=== PATIENT | female | born 1985 | race Two or more races ===

== ENCOUNTER 2016-04-29 10:05 | Emergency (ER) | payer OTHER ==
[~2016-04-29] VITALS: Ht 157.5 cm; Wt 65.8 kg
[2016-04-29 10:45] VITALS: BP 114/70
== END 2016-04-29 12:41 | disposition home or self-care (01) ==
LOC: ER 10:05
DX: S00.83XA Contusion of other part of head, initial encounter (principal); W50.0XXA Accidental hit or strike by another person, initial encounter; Y93.71 Activity, boxing; Y99.9 Unspecified external cause status; Y92.89 Other specified places as the place of occurrence of the external cause
CPT/HCPCS: 70486

== ENCOUNTER 2019-11-04 18:34 | Emergency (ER) | payer MEDICAID, OTHER ==
[~2019-11-04] VITALS: Ht 157.5 cm; Wt 67.1 kg
[2019-11-04 19:59] LABS: Basophils # (auto) 0.1 10 ^3/uL (0-0.2); Basophils % (auto) 0.6 % (0.0-2.0); Eosinophils # (auto) 0.1 10 ^3/uL (0-0.8); Eosinophils % (auto) 1.1 % (0.0-7.0); Hematocrit 40.2 % (36.0-46.0); Hemoglobin 13.4 g/dL (12.2-16.2); Lymphocytes % (auto) 33.6 % (10.0-50.0); Mean Corpuscular Hemoglobin 31.3 pg (28.0-32.0); Mean Corpuscular Hgb Conc. 33.3 g/dL (32.0-36.0); Mean Corpuscular Volume 94.1 fL (80.0-100.0); Monocytes # (auto) 0.6 10 ^3/uL (0-1.3); Monocytes % (auto) 6.5 % (0.0-12.0); Neutrophils # (auto) 5.2 10 ^3/uL (1.6-8.6); Neutrophils % (auto) 58.2 % (37.0-80.0); Nucleated Red Blood Cells % 0.1 %; Platelet Count (auto) 440 10^3/uL (140-450); Red Blood Cells 4.27 10^6/uL (4.0-5.20); Red Cell Distribution Width 12.6 % (11.8-14.3); White Blood Cell 8.9 10^3/uL (4.4-10.8)
[2019-11-04] MEDS ORDERED: SODIUM CHLORIDE 0.9% 1,000 ML IV ONE (20:15)
[2019-11-04] MEDS ORDERED: ONDANSETRON HCL 4 MG/2 ML VIAL IV ONE (20:15)
[2019-11-04 20:18] LABS: Alanine Aminotransferase 36 U/L (13-56); Albumin 3.6 g/dL (3.4-5.0); Anion Gap 5 (5-15); Aspartate Aminotransferase 23 U/L (15-37); BUN/Creatinine Ratio 7.1; Blood Urea Nitrogen 5 mg/dL (7-18); Calcium 8.3 mg/dL (8.5-10.1); Carbon Dioxide 27 mmol/L (21-32); Chloride 105 mmol/L (98-107); GFR African American 123 mL/min; GFR Non-African American 102 mL/min; Glucose 85 mg/dL (74-106); Magnesium 2.6 mg/dL (1.6-2.6); Potassium 3.7 mmol/L (3.5-5.1); Sodium 137 mmol/L (136-145)
[2019-11-04 20:23] LABS: Alkaline Phosphatase 62 U/L (45-117); Bilirubin, Total 0.3 mg/dL (0.2-1.0); Total Protein 7.8 g/dL (6.4-8.2)
[2019-11-04 20:47] LABS: Urine Bacteria NONE SEEN /hpf (None Seen); Urine Blood Negative /uL (Negative); Urine Specific Gravity 1.006 (1.001-1.035); Urine WBC 5 /hpf (0 - 5)
[2019-11-04 20:56] LABS: Alcohol, Urine < 3.0 mg/dL (0-10); Amphetamine Screen, Urine NEGATIVE (NEGATIVE); Barbiturate Scree,Urine NEGATIVE (NEGATIVE); Benzodiazephine Screen, Urine NEGATIVE (NEGATIVE); Cocaine Screen, Urine NEGATIVE (NEGATIVE); Opiate Scree,Urine NEGATIVE (NEGATIVE); Phencyclidine Screen, Urine NEGATIVE (NEGATIVE)
[2019-11-04] MEDS ORDERED: cefTRIAXone SOD 1,000 MG VL IM ONE (21:00)
[2019-11-04] MEDS ORDERED: ACETAMINOPHEN 325 MG TAB PO ONE (21:00)
[2019-11-04 21:04] LABS: Cannabinoid Screen, Urine POSITIVE (NEGATIVE)
[2019-11-04] MEDS ORDERED: cefTRIAXone 1GM/50ML D5W 50 ML IV ONE (21:15)
[2019-11-04 21:39] VITALS: BP 127/57
== END 2019-11-04 21:46 | disposition home or self-care (01) ==
LOC: ER 18:34
DX: G43.909 Migraine, unspecified, not intractable, without status migrainosus (principal); N39.0 Urinary tract infection, site not specified; F12.10 Cannabis abuse, uncomplicated; Z71.51 Drug abuse counseling and surveillance of drug abuser; J45.909 Unspecified asthma, uncomplicated
CPT/HCPCS: 36415; 70450; 80053; 80307; 81001; 83735; 84484; 84702; 85025; 93005; 96361; 96365; 96375; 99285; J0696; J2405; J7030

== ENCOUNTER 2022-07-19 11:54 | Emergency (ER) | payer MEDICAID ==
[~2022-07-19] VITALS: Ht 157.5 cm; Wt 66.0 kg
[2022-07-19 12:28] LABS: Basophils # (auto) 0.1 10 ^3/uL (0-0.2); Basophils % (auto) 0.6 % (0.0-2.0); Eosinophils # (auto) 0.1 10 ^3/uL (0-0.8); Eosinophils % (auto) 0.5 % (0.0-7.0); Hematocrit 36.6 % (36.0-46.0); Hemoglobin 12.3 g/dL (12.2-16.2); Lymphocytes # (auto) 1.7 10 ^3/uL (0.4-5.4); Lymphocytes % (auto) 17.5 % (10.0-50.0); Mean Corpuscular Hemoglobin 30.8 pg (28.0-32.0); Mean Corpuscular Hgb Conc. 33.6 g/dL (32.0-36.0); Mean Corpuscular Volume 91.8 fL (80.0-100.0); Monocytes # (auto) 0.5 10 ^3/uL (0-1.3); Neutrophils # (auto) 7.4 10 ^3/uL (1.6-8.6); Neutrophils % (auto) 76.4 % (37.0-80.0); Nucleated Red Blood Cells % 0.1 %; Red Blood Cells 3.98 10^6/uL (4.0-5.20); Red Cell Distribution Width 13.7 % (11.8-14.3); White Blood Cell 9.8 10^3/uL (4.4-10.8)
[2022-07-19 12:47] LABS: Albumin 3.7 g/dL (3.4-5.0); Potassium 3.8 mmol/L (3.5-5.1)
[2022-07-19 12:48] LABS: Urine Bacteria NONE SEEN /hpf (None Seen); Urine Blood 3+ /uL (Negative); Urine Specific Gravity 1.013 (1.001-1.035); Urine WBC 11 /hpf (0 - 5)
[2022-07-19 12:51] LABS: BUN/Creatinine Ratio 17.8 (10.0-20.0); Bilirubin, Total 0.6 mg/dL (0.2-1.0)
[2022-07-19] MEDS ORDERED: KETOROLAC TROMETH 60MG/2ML VIAL IM ONE (16:00)
[2022-07-19 17:12] VITALS: BP 116/74
== END 2022-07-19 17:16 | disposition home or self-care (01) ==
LOC: ER 11:54
DX: R10.31 Right lower quadrant pain (principal); R10.2 Pelvic and perineal pain; J45.909 Unspecified asthma, uncomplicated
CPT/HCPCS: 36415; 74176; 76856; 80053; 81001; 84702; 85025; 96372; 99285; J1885; J7030

== ENCOUNTER 2024-06-24 10:11 | Inpatient (IN) | payer MEDICAID ==
[~2024-06-24] VITALS: Ht 157.5 cm; Wt 83.9 kg
[2024-06-24 03:02] VITALS: BP 118/64; PULSE 113; RESP 18; TEMP 99.3; O2SAT 96
[2024-06-24 10:30] VITALS: PULSE 133; RESP 19; O2SAT 95
--- NOTE | 2024-06-24 10:36 | ECG ---
[facility] Test Date: 2024-06-24 Test Time: 10:23:22 Pat Name: WENDI HERNANDEZ Department: ER Room: [address] [place] [address] Gender: F Sex Therapist: MELISSA : 1985 Requested By: EMERGENCY EMERGENCY Order Number: [id number] Reading MD: Parish Sandoval Measurements Intervals [place] Rate: 134 P: 71 IA: 154 QRS: 72 QRSD: 83 T: 36 QT: 284 QTc: 424 Interpretive Statements Sinus tachycardia Borderline T wave abnormalities Electronically Signed On 06-24-2024 18:52:06 PDT by Parish Sandoval Please click the below link to view image of tracing.
[2024-06-24] MEDS: SODIUM CHLORIDE 0.9% 1,000 ML IVB ONE (10:48)
[2024-06-24] MEDS: ACETAMINOPHEN 325 MG TAB PO ONE (10:48)
[2024-06-24] MEDS: ONDANSETRON HCL 4 MG/2 ML VIAL IV ONE (10:48)
[2024-06-24] MEDS: MORPHINE SULFATE 4 MG/ML SYR/VIAL IV ONE (10:48)
--- NOTE | 2024-06-24 10:56 | ED.PDOC ---
History of Present Illness HPI Comments 38-year-old female who comes in with chief complaint of body chills and shaking. The patient states that two days ago she developed a fever of 102.7. The patient also states that she did take some acetaminophen and alternated with Advil for the fever. Last night in the fever went up to 103 and she developed a headache so she came to the emergency department's for evaluation. Upon arrival, the patient was complaining of left lower quadrant pain as well as right flank pain. The patient does have a history of untreated UTI approximately three days ago. Chief Complaint: Flank Pain Time Seen by MD: 10:27 Primary Care Provider: JUANIS Reviewed Notes: Nurses Notes, Medications, Allergies (No allergies to medications) Allergies: Coded Allergies: NO KNOWN ALLERGIES (Unverified , 04/29/16) Home Meds Reported Medications Cyclobenzaprine HCl (Cyclobenzaprine Hydrochlo) 10 Mg Tab, 1 TAB PO Q8HPRN PRN 06/24/24 Information Source: Patient Mode of Arrival: Ambulatory Severity: Moderate Timing: Days Duration: Since onset Prehospital treatment: None Associated signs and symptoms Associated chills with body shaking as well as left flank pain and right flank pain Past Medical History PAST MEDICAL HISTORY: Asthma Surgical History (Other): Throat surgery ABSENCE MANAGEMENT CONSULTANT History: No Pertinent ABSENCE MANAGEMENT CONSULTANT History Family History Family History: Family hx of DM, Family hx of HTN, Family hx of Kidney mary anne, Family hx of liver mary anne Social History Smoker: Non-Smoker Alcohol: Occasionally Drugs: Marijuana Lives In: Home Constitutional: reports: chills, fever, others (Body shaking); denies: diaphoresis, fatigue, malaise, sweats, weakness EENTM: denies: blurred vision, double vision, ear bleeding, ear discharge, ear drainage, ear pain, ear ringing, eye pain, eye redness, hearing loss, mouth pain, mouth swelling, nasal discharge, nose bleeding, nose congestion, nose pain, photophobia, tearing, throat pain, throat swelling, voice changes, others Respiratory: denies: cough, hemoptysis, orthopnea, SOB at rest, shortness of breath, SOB with excertion, stridor, wheezing, others Cardiovascular: denies: chest pain, dizzy spells, diaphoresis, Dyspnea on exertion, edema, irregular heart beat, left arm pain, lightheadedness, p alpitations, PND, syncope, others Gastrointestinal: reports: abdominal pain; denies: abdomen distended, blood streaked bowels, constipated, diarrhea, dysphagia, difficulty swallowing, hematemesis, melena, nausea, poor appetite, poor fluid intake, rectal bleeding, rectal pain, vomiting, others Genitourinary: reports: flank pain (Right flank pain); denies: abnormal vagina bleeding, burning, dyspareunia, dysuria, frequency, hematuria, incontinence, pain, , vagina discharge, urgency, others Neurological: reports: headache; denies: dizziness, fainting, left sided numbness, left sided weakness, numbness, paresthesia, pre-existing deficit, right sided numbness, right sided weakness, seizure, speech problems, tingling, tremors, weakness, others Musculoskeletal: denies: back pain, gout, joint pain, joint swelling, muscle pain, muscle stiffness, neck pain, others Integumetry: denies: bruises, change in color, change in hair/nails, dryness, laceration, lesions, lumps, rash, wounds, others Allergic/Immunocompromised: denies: Difficulty Healing, Frequent Infections, Hives, Itching, others Hematologic/Lymphatic: denies: anemia, blood clots, easy bleeding, easy bruising, swollen glands, others Endocrine: denies: excessive hunger, excessive sweating, excessive thirst, excessive urination, flushing, intolerance to cold, intolerance to heat, unexplained weight gain, unexplained weight loss, others Psychiatric: denies: anxiety, bipolar disorder, depression, hopeless, panic disorder, schizophrenia, sleepless, suicidal, others Physical Exam General Appearance: Moderate Distress HEENT: Normal ENT Inspection, Pharynx Normal, TMs Normal Neck: Full Range of Motion, Non-Tender, Normal, Normal Inspection Respiratory: Chest Non-Tender, Lungs Clear, No Accessory Muscle Use, No Respiratory Distress, Normal Breath Sounds Cardiovascular: No Edema, No JVD, No Murmur, No Gallop, Tachycardia Breast Exam: Deferred Gastrointestinal: No Organomegaly, Non Tender, No Pulsatile Mass, Normal Bowel Sounds, Soft Genitalia: Deferred Pelvic: Deferred Rectal: Deferred Extremities: No calf tenderness, Normal capillary refill, Normal inspection, Normal range of motion, Non-tender, No pedal edema Musculoskeletal : Apperance: Normal Neurologic: Alert, pantograph i engraver II-XII nml as Tested, Motor Weakness, Normal Affect, Normal Mood, No Sensory Deficits Cerebellar Function: Normal Reflexes: Normal Skin: Dry, Normal Color, Warm Lymphatic: No Adenopathy Was a procedure done? Was a procedure done?: No Differential Dx Considerations may include: Generalized weakness, sepsis, UTI X-Ray, Labs, Meds, VS Vital Signs Date Time Temp Pulse Resp B/P (MAP) Pulse Ox O2 Delivery O2 Flow Rate FiO2 06/24/24 13:30 106 26 111/64 (80) 99 06/24/24 12:22 98.9 06/24/24 11:13 127 28 122/60 06/24/24 10:48 133 28 161/72 06/24/24 10:48 100.1 06/24/24 10:30 133 19 95 Room Air* 0 21 06/24/24 10:30 100.1 133 19 161/72 (101) 95 100.1 06/24/24 10:23 134 06/24/24 10:20 100.6 146 20 136/84 (101) 96 100.6 Lab Test 06/24/24 12:46 06/24/24 10:50 Range/Units Urine Color Light-yellow Yellow Urine Clarity Cloudy H Clear Urine pH 6.0 5.0-9.0 Urine Specific [place] 1.005 1.001-1.035 Urine Protein Negative Negative Urine Ketones 2+ H Negative Urine Blood Negative Negative /uL Urine Nitrite Negative Negative Urine Bilirubin Negative Negative Urine Urobilinogen Normal Negative mg/dL Urine Leukocyte Esterase 3+ Negative /uL Urine RBC 1 0 - 4 /hpf Urine Microscopic WBC 22 H 0-5 /HPF Urine Squamous Epithelial Cells Mod <5 /hpf Urine Bacteria Mod H None Seen /hpf Urine Glucose Normal Normal mg/dL Urine Test Negative Negative White Blood Count 24.5 H 4.4-10.8 10^3/uL Red Blood Count 4.06 4.0-5.20 10^6/uL Hemoglobin 12.3 12.2-16.2 g/dL Hematocrit 36.8 36.0-46.0 % Mean Corpuscular Volume 90.6 80.0-100.0 fL Mean Corpuscular Hemoglobin 30.3 28.0-32.0 pg Mean Corpuscular Hemoglobin Concent 33.5 32.0-36.0 g/dL Red Cell Distribution Width 12.9 11.8-14.3 % Platelet Count 442 140-450 10^3/uL Mean Platelet Volume 7.1 6.9-10.8 fL Neutrophils (%) (Auto) 87.7 H 37.0-80.0 % Lymphocytes (%) (Auto) 4.5 L 10.0-50.0 % Monocytes (%) (Auto) 7.5 0.0-12.0 % Eosinophils (%) (Auto) 0.1 0.0-7.0 % Basophils (%) (Auto) 0.2 0.0-2.0 % Neutrophils # (Auto) 21.5 H 1.6-8.6 10 ^3/uL Lymphocytes # (Auto) 1.1 0.4-5.4 10 ^3/uL Monocytes # (Auto) 1.8 H 0-1.3 10 ^3/uL Eosinophils # (Auto) 0 0-0.8 10 ^3/uL Basophils # (Auto) 0 0-0.2 10 ^3/uL Nucleated Red Blood Cells 0.0 % Sodium Level 133 L 136-145 mmol/L Potassium Level 3.3 L 3.5-5.1 mmol/L Chloride Level 102 98-107 mmol/L Carbon Dioxide Level 22 20-31 mmol/L Anion Gap 9 5-15 Blood Urea Nitrogen 6 L 9-23 mg/dL Creatinine 0.73 0.550-1.02 mg/dL Glomerular Filtration Rate Calc 108 >90 mL/min BUN/Creatinine Ratio 8.2 L 10.0-20.0 Serum Glucose 100 74-106 mg/dL Lactic Acid Level 0.9 0.4-2.0 mmol/L Calcium Level 9.6 8.7-10.4 mg/dL Hepatitis B Surface Antigen Pending Hepatitis C Antibody Pending Current Medications Medications (Trade) Dose Ordered Sig/Lacey Route Start Time Stop Time Status Last Admin Acetaminophen (Tylenol Tablet) 650 mg ONCE ONCE PO 06/24/24 10:45 06/24/24 10:46 DC 06/24/24 10:48 Ondansetron HCl (Zofran) 4 mg ONCE ONCE IV 06/24/24 10:45 06/24/24 10:46 DC 06/24/24 10:48 Sodium Chloride 1,000 ml @ 1,000 mls/hr Q1H ONCE IVB 06/24/24 10:45 06/24/24 11:44 DC 06/24/24 10:48 Morphine Sulfate 4 mg ONCE ONCE IV 06/24/24 10:45 06/24/24 10:46 DC 06/24/24 10:48 Sodium Chloride 1,500 ml @ 1,500 mls/hr ONCE ONCE IV 06/24/24 11:30 06/24/24 12:29 DC 06/24/24 11:37 Ceftriaxone Sodium 50 ml @ 100 mls/hr ONCE ONCE IV 06/24/24 11:30 06/24/24 11:59 DC 06/24/24 11:32 Vancomycin HCl 250 ml @ 250 mls/hr ONCE ONCE IV 06/24/24 11:30 06/24/24 12:29 DC 06/24/24 11:45 The patient was given acetaminophen 650 mg by mouth for the temperature of 100.6 The patient was given Zofran 4 mg IV push for the nausea and vomiting The patient was given morphine 4 mg IV push for the pain The patient was given a 1 L bolus of normal saline. At this time, the patient will did have a CT scan of the abdomen and pelvis which shows: IMPRESSION: 1. There is mild right pelviectasis and right hydroureter. There is mild fat stranding surrounding the right kidney. There is no evidence of nephrolithiasis or right ureteral calculus. Changes May relate to recent passage of kidney stone. HS:Y At this time, the patient was being admitted to the hospitalist The urine test is positive for UTI We are concerned about sepsis so the patient was started on normal saline at [facility] protocol The patient was given vancomycin and Rocephin after blood cultures x2 were drawn. The lactic acid level is within normal limits. The patient was being admitted at this time Images Reviewed?: Images reviewed and evaluated by me Time of 1ST Reevaluation: 18:56 Reevaluation 1ST: Unchanged Patient Education/Counseling: Diagnosis, Treatment, Prognosis Family Education/Counseling: Diagnosis, Treatment, Prognosis Departure 1 Departure Time of Disposition: 18:56 Impression: Primary Impression: Sepsis Qualified Codes: A41.9 - Sepsis, unspecified organism Additional Impressions: UTI (urinary tract infection) Qualified Codes: N30.00 - Acute cystitis without hematuria Fever Qualified Codes: R50.9 - Fever, unspecified Disposition: 09 ADMITTED INPATIENT Admit to: Med Surg Condition: Fair Critical Care Note Critical Care Time?: No Stability Stability form required: Yes Unstable for transfer: ED Physician Assesment (Clinical assesment) Heart Score Heart Score: Heart Score Response (Comments) Value History N/A 0 EKG N/A 0 Age N/A 0 Risk Factors N/A 0 Troponin N/A 0 Total 0 CHEY CACERES MD Jun 24, 2024 10:56
[2024-06-24 11:06] LABS: Basophils # (auto) 0 10 ^3/uL (0-0.2); Basophils % (auto) 0.2 % (0.0-2.0); Eosinophils # (auto) 0 10 ^3/uL (0-0.8); Eosinophils % (auto) 0.1 % (0.0-7.0); Hematocrit 36.8 % (36.0-46.0); Hemoglobin 12.3 g/dL (12.2-16.2); Lymphocytes # (auto) 1.1 10 ^3/uL (0.4-5.4); Lymphocytes % (auto) 4.5 % (10.0-50.0); Mean Corpuscular Hemoglobin 30.3 pg (28.0-32.0); Mean Corpuscular Hgb Conc. 33.5 g/dL (32.0-36.0); Mean Corpuscular Volume 90.6 fL (80.0-100.0); Monocytes # (auto) 1.8 10 ^3/uL (0-1.3); Monocytes % (auto) 7.5 % (0.0-12.0); Neutrophils # (auto) 21.5 10 ^3/uL (1.6-8.6); Neutrophils % (auto) 87.7 % (37.0-80.0); Platelet Count (auto) 442 10^3/uL (140-450); Red Blood Cells 4.06 10^6/uL (4.0-5.20); Red Cell Distribution Width 12.9 % (11.8-14.3); White Blood Cell 24.5 10^3/uL (4.4-10.8)
[2024-06-24 11:17] LABS: Chloride 102 mmol/L (98-107)
[2024-06-24 11:18] LABS: Anion Gap 9 (5-15); Calcium 9.6 mg/dL (8.7-10.4); Carbon Dioxide 22 mmol/L (20-31); Potassium 3.3 mmol/L (3.5-5.1); Sodium 133 mmol/L (136-145)
[2024-06-24 11:23] LABS: BUN/Creatinine Ratio 8.2 (10.0-20.0); Glucose 100 mg/dL (74-106)
[2024-06-24 11:24] LABS: Blood Urea Nitrogen 6 mg/dL (9-23)
[2024-06-24] MEDS: cefTRIAXone 1GM/50ML D5W 50 ML IV ONE (11:32)
[2024-06-24] MEDS: SODIUM CHLORIDE 0.9% 1,500 ML IV ONE (11:37)
[2024-06-24] MEDS: VANCOMYCIN 1GM/250ML KIT 250 ML IV ONE (11:45)
[2024-06-24 13:07] LABS: Urine Bacteria MOD /hpf (None Seen); Urine Blood Negative /uL (Negative); Urine Color Light-Yellow (Yellow); Urine Protein, UAD Negative (Negative); Urine Specific Gravity 1.005 (1.001-1.035); Urine Squamous Epithelial Cell MOD /hpf (<5); Urine Urobilinogen Normal (Negative); Urine WBC 22 /HPF (0-5)
[2024-06-24 13:09] LABS: Urine Clarity Cloudy (Clear)
--- NOTE | 2024-06-24 14:03 | DVH ---
CT ABDOMEN AND PELVIS WITHOUT CONTRAST CLINICAL HISTORY: right flank pain TECHNIQUE: Multiple contiguous axial images of the abdomen and pelvis without intravenous contrast. T he images were reformatted degenerate coronal and sagittal reconstructions. All CT scans at this medical facility are performed using dose modulation techniques as appropriate t o a performed exam including the following:Automated exposure control was utilized; adjustment of the MA and/or KV according to patient size; and use of iterative reconstruction technique. Radiation Dose Information: CT Dose: CTDI volume is 12.7 mGy. Dose-length product is 648 mGy*cm Comparison: CT CT AB PEL WO CON-NO ORAL OR IV on DOS: 07/19/22 FINDINGS: Evaluation of the abdomen and pelvis is limited without intravenous contrast. There is no evidence of nephrolithiasis. There is mild right pelviectasis and right hydroureter. Ther e is no evidence of an obstructing ureteral calculus. There is mild fat stranding surrounding the rig ht kidney. There is no left hydronephrosis. The liver, gallbladder, pancreas, adrenal glands, and spleen appear within normal limits. There is no gross evidence of abdominal lymphadenopathy. There is no free fluid or free air. There is a small fat containing umbilical hernia. The stomach grossly appears unremarkable. The small and large bowel loops demonstrate normal caliber and distribution. A normal appearing appendix is seen in the right lower quadrant abdomen. The abdominal aorta and IVC appear within normal limits. The bladder appears unremarkable for the degree of distention. There is no evidence of a bladder calc ulus. The uterus appears within normal limits.. There is no gross evidence of a pelvic mass. There i s no free fluid collection. Lung bases are clear. There is no acute osseous abnormality. IMPRESSION: 1. There is mild right pelviectasis and right hydroureter. There is mild fat stranding surrounding th e right kidney. There is no evidence of nephrolithiasis or right ureteral calculus. Changes May relat e to recent passage of kidney stone. HS:Y
[2024-06-24] MEDS ORDERED: CYCL-611 PO (14:28)
[2024-06-24] MEDS ORDERED: NITROGLYCERIN 0.4 MG SL TAB SL PRN (14:30)
[2024-06-24] MEDS ORDERED: MORPHINE SULFATE INJ 2 MG/ml SYRG IV PRN (14:30)
[2024-06-24] MEDS ORDERED: ONDANSETRON HCL 4 MG/2 ML VIAL IV PRN (14:30)
[2024-06-24] MEDS ORDERED: VANCOMYCIN PER PHARMACY 0 MG IV SCH (14:30)
--- NOTE | 2024-06-24 14:34 | DVHHP2 ---
History of Present Illness Reason for Visit: Right flank pain History of Present Illness Kasia Suggs is a 38-year-old female with past medical history of asthma and possible tonsillectomy who presents to the ED with right flank pain, chills, headache, fever, frequency, and dysuria x 2 days. Patient also reports of left lower quadrant pain. She states that her fever was around 103f and she took Tylenol to help reduce the fever. She also reports that she does not use home oxygen. She does report that she drinks alcohol occasionally and uses gummies but does not smoke. Patient denies any chest pain, shortness of breath, lightheadedness, weakness, dizziness, nausea, vomiting, or diarrhea. Patient's spouse Jovon at the bedside as well. Patient reports that she stopped taking her control 4-5 months ago. Pulmonary: Asthma Past Surgical History: Tonsillectomy Family History: DM, Hypertension, Other (Mom with diabetes, hypertension, kidney disease, and liver disease) Smoke: No ALCOHOL: occassional Drugs: Other (Gummies) Lives: with Family Domestic Violence: Neg Review of Systems Constitutional: Yes: Fever, Chills, Other (Headache) Gastrointestinal: Abdominal Pain Genitourinary: Dysuria, Frequency Musculoskeletal: other (Right flank pain) Allergies: Coded Allergies: NO KNOWN ALLERGIES (Unverified , 04/29/16) Exam Vital Signs Vital Signs Date Time Temp Pulse Resp B/P (MAP) Pulse Ox O2 Delivery O2 Flow Rate FiO2 06/24/24 13:30 106 26 111/64 (80) 99 06/24/24 12:22 98.9 06/24/24 10:30 Room Air* 0 21 General Appearance: Alert, Oriented X3, Cooperative, No acute distress HEENT: Atraumatic, PERRLA, EOMI, Mucous membr. moist/pink Respiratory: Clear to auscultation, Normal air movement Cardiovascular: Normal S1, Normal S2, No murmurs Abdominal: Normal bowel sounds, Soft, No hepatospenomegaly, No masses Extremities: No clubbing, No cyanosis, No edema, Normal pulses, No tenderness/swelling Skin: No significant lesion Neuro: Normal speech, Strength at 5/5 X4 ext, Normal tone, Sensation intact Psych/Mental Status: Mental status NL, Mood NL Labs/Xrays Labs Test 06/24/24 12:46 06/24/24 10:50 Range/Units Urine Color Light-yellow Yellow Urine Clarity Cloudy H Clear Urine pH 6.0 5.0-9.0 Urine Specific [place] 1.005 1.001-1.035 Urine Protein Negative Negative Urine Ketones 2+ H Negative Urine Blood Negative Negative /uL Urine Nitrite Negative Negative Urine Bilirubin Negative Negative Urine Urobilinogen Normal Negative mg/dL Urine Leukocyte Esterase 3+ Negative /uL Urine RBC 1 0 - 4 /hpf Urine Microscopic WBC 22 H 0-5 /HPF Urine Squamous Epithelial Cells Mod <5 /hpf Urine Bacteria Mod H None Seen /hpf Urine Glucose Normal Normal mg/dL Urine Test Negative Negative White Blood Count 24.5 H 4.4-10.8 10^3/uL Red Blood Count 4.06 4.0-5.20 10^6/uL Hemoglobin 12.3 12.2-16.2 g/dL Hematocrit 36.8 36.0-46.0 % Mean Corpuscular Volume 90.6 80.0-100.0 fL Mean Corpuscular Hemoglobin 30.3 28.0-32.0 pg Mean Corpuscular Hemoglobin Concent 33.5 32.0-36.0 g/dL Red Cell Distribution Width 12.9 11.8-14.3 % Platelet Count 442 140-450 10^3/uL Mean Platelet Volume 7.1 6.9-10.8 fL Neutrophils (%) (Auto) 87.7 H 37.0-80.0 % Lymphocytes (%) (Auto) 4.5 L 10.0-50.0 % Monocytes (%) (Auto) 7.5 0.0-12.0 % Eosinophils (%) (Auto) 0.1 0.0-7.0 % Basophils (%) (Auto) 0.2 0.0-2.0 % Neutrophils # (Auto) 21.5 H 1.6-8.6 10 ^3/uL Lymphocytes # (Auto) 1.1 0.4-5.4 10 ^3/uL Monocytes # (Auto) 1.8 H 0-1.3 10 ^3/uL Eosinophils # (Auto) 0 0-0.8 10 ^3/uL Basophils # (Auto) 0 0-0.2 10 ^3/uL Nucleated Red Blood Cells 0.0 % Sodium Level 133 L 136-145 mmol/L Potassium Level 3.3 L 3.5-5.1 mmol/L Chloride Level 102 98-107 mmol/L Carbon Dioxide Level 22 20-31 mmol/L Anion Gap 9 5-15 Blood Urea Nitrogen 6 L 9-23 mg/dL Creatinine 0.73 0.550-1.02 mg/dL Glomerular Filtration Rate Calc 108 >90 mL/min BUN/Creatinine Ratio 8.2 L 10.0-20.0 Serum Glucose 100 74-106 mg/dL Lactic Acid Level 0.9 0.4-2.0 mmol/L Calcium Level 9.6 8.7-10.4 mg/dL CT ABDOMEN AND PELVIS WITHOUT CONTRAST CLINICAL HISTORY: right flank pain TECHNIQUE: Multiple contiguous axial images of the abdomen and pelvis without intravenous contrast. The images were reformatted degenerate coronal and sagittal reconstructions. All CT scans at this medical facility are performed using dose modulation techniques as appropriate to a performed exam including the following:Automated exposure control was utilized; adjustment of the MA and/or KV according to patient size; and use of iterative reconstruction technique. Radiation Dose Information: CT Dose: CTDI volume is 12.7 mGy. Dose-length product is 648 mGy*cm Comparison: CT CT AB PEL WO CON-NO ORAL OR IV on DOS: 07/19/22 FINDINGS: Evaluation of the abdomen and pelvis is limited without intravenous contrast. There is no evidence of nephrolithiasis. There is mild right pelviectasis and right hydroureter. There is no evidence of an obstructing ureteral calculus. There is mild fat stranding surrounding the right kidney. There is no left hydronephrosis. The liver, gallbladder, pancreas, adrenal glands, and spleen appear within normal limits. There is no gross evidence of abdominal lymphadenopathy. There is no free fluid or free air. There is a small fat containing umbilical hernia. The stomach grossly appears unremarkable. The small and large bowel loops demonstrate normal caliber and distribution. A normal appearing appendix is seen in the right lower quadrant abdomen. The abdominal aorta and IVC appear within normal limits. The bladder appears unremarkable for the degree of distention. There is no evidence of a bladder calculus. The uterus appears within normal limits.. There is no gross evidence of a pelvic mass. There is no free fluid collection. Lung bases are clear. There is no acute osseous abnormality. IMPRESSION: 1. There is mild right pelviectasis and right hydroureter. There is mild fat stranding surrounding the right kidney. There is no evidence of nephrolithiasis or right ureteral calculus. Changes May relate to recent passage of kidney stone. Assessment/Plan Assessment/Plan Assessment Leukocytosis probable sepsis Intractable right flank pain mild right pelviectasis and right hydroureter Hyponatremia Hypokalemia Sinus tachycardia Pyrexia Acute hypoxic respiratory failure ETOH use Substance abuse History of asthma ?History of tonsillectomy Plan Admit to [facility] Supportive oxygen Replete lytes IV antibiotics-vancomycin +ceftriaxone UA IV fluids Antiemetics Pain management Antipyretics Lactic level Blood cultures HCG CT abdomen and pelvis EKG Urine culture Discussed plan of care with patient, patient's spouse, and nurse Home medications reconciled DVT prophylaxis-not indicated patient ambulating PUD prophylaxis-not indicated no history of GERD or GI bleed Counseled patient on cessation of EtOH use Counseled patient on cessation of substance abuse Plan discussed with: Patient, Spouse Date of Service: Jun 24, 2024 Billing Provider: JOE PERSAUD Common Visit Codes: [id number] INP/OBS CARE (HIGH) JOE PERSAUD Jun 24, 2024 14:34
[2024-06-24] MEDS ORDERED: CYCLOBENZAPRINE HCL 10 MG TAB PO PRN (14:45)
[2024-06-24 15:37] VITALS: BP 110/58; PULSE 99; RESP 16; TEMP 97.8; O2SAT 99
[2024-06-24] MEDS: HYDROcodone-ACET 5/325MG TAB PO PRN (15:57)
[2024-06-24 17:05] VITALS: BP 109/52; PULSE 101; RESP 16; TEMP 98.2
[2024-06-24] MEDS: VANCOMYCIN 1GM/250ML KIT 250 ML IV SCH (20:05)
[2024-06-24] MEDS: MORPHINE SULFATE INJ 2 MG/ml SYRG IV PRN (20:14)
[2024-06-25] VITALS (8 sets, daily range): BP systolic 95–125; BP diastolic 39–69; PULSE 88–113; RESP 16–18; TEMP 97.8–99.3; O2SAT 90–98
[2024-06-25] MEDS: ACETAMINOPHEN 325 MG TAB PO PRN (04:53)
[2024-06-25 06:09] LABS: Basophils # (auto) 0 10 ^3/uL (0-0.2); Basophils % (auto) 0.2 % (0.0-2.0); Eosinophils # (auto) 0.3 10 ^3/uL (0-0.8); Eosinophils % (auto) 1.6 % (0.0-7.0); Hematocrit 32.6 % (36.0-46.0); Hemoglobin 11.1 g/dL (12.2-16.2); Lymphocytes # (auto) 1.9 10 ^3/uL (0.4-5.4); Lymphocytes % (auto) 10.9 % (10.0-50.0); Mean Corpuscular Hemoglobin 30.6 pg (28.0-32.0); Mean Corpuscular Hgb Conc. 34.1 g/dL (32.0-36.0); Mean Corpuscular Volume 89.9 fL (80.0-100.0); Monocytes # (auto) 1.7 10 ^3/uL (0-1.3); Monocytes % (auto) 9.7 % (0.0-12.0); Neutrophils # (auto) 13.4 10 ^3/uL (1.6-8.6); Neutrophils % (auto) 77.6 % (37.0-80.0); Nucleated Red Blood Cells % 0.1 %; Platelet Count (auto) 380 10^3/uL (140-450); Red Blood Cells 3.62 10^6/uL (4.0-5.20); Red Cell Distribution Width 12.6 % (11.8-14.3); White Blood Cell 17.3 10^3/uL (4.4-10.8)
[2024-06-25 06:33] LABS: Alanine Aminotransferase 12 U/L (7-40); Albumin 3.9 g/dL (3.2-4.8); Alkaline Phosphatase 84 U/L (46-116); Anion Gap 8 (5-15); Calcium 8.9 mg/dL (8.7-10.4); Carbon Dioxide 23 mmol/L (20-31); Chloride 104 mmol/L (98-107); Glucose 105 mg/dL (74-106); Total Protein 6.5 g/dL (5.7-8.2)
[2024-06-25 06:35] LABS: Aspartate Aminotransferase 10 U/L (13-40); BUN/Creatinine Ratio 8.6 (10.0-20.0); Bilirubin, Total 0.2 mg/dL (0.2-1.0); Blood Urea Nitrogen < 5 mg/dL (9-23); Potassium 3.3 mmol/L (3.5-5.1); Sodium 135 mmol/L (136-145)
[2024-06-25] MEDS: cefTRIAXone 1GM/50ML D5W 50 ML IV SCH (10:17)
--- NOTE | 2024-06-25 17:52 | DVHPN2 ---
Subjective Assuming the care of the patient from today onwards. Patient is complaining of right flank pain. Patient initially presented to the hospital with flank pain as well as fevers chills burning urination which is improved. Changes from previous H/P or p: No Changes Gastrointestinal: Abdominal Pain Genitourinary: Dysuria, Frequency Musculoskeletal: other (Right flank pain) Objective Vitals Vital Signs Date Time Temp Pulse Resp B/P (MAP) Pulse Ox O2 Delivery O2 Flow Rate FiO2 06/25/24 17:00 98.2 94 16 109/53 (71) 94 98.2 06/25/24 08:00 Room Air* 0 21 Intake/Output Intake and Output 06/25/24 07:00 Intake Total 2000 ml Balance 2000 ml Intake Oral 200 ml IV Total 1800 ml # Voids 1 Exam HEENT pupils are reactive Neck is supple CV is S1-S2 regular rate and rhythm Respiratory bilateral clear GI positive bowel sound, there is no CVA tenderness 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 Medications Current Medications Medications Dose Ordered Sig/Lacey Route Start Time Stop Time Status Last Admin Dose Admin Ceftriaxone Sodium 50 ml @ 100 mls/hr DAILY@09 IV 06/25/24 09:00 06/25/24 10:17 100 MLS/HR Vancomycin HCl 0 ml @ 0 mls/hr UD IV 06/24/24 14:30 Acetaminophen/ Hydrocodone Bitart 1 tab Q4HP PRN PO 06/24/24 14:30 06/25/24 13:16 1 TAB Ondansetron HCl 4 mg Q4HP PRN IV 06/24/24 14:30 Acetaminophen 650 mg Q6HP PRN PO 06/24/24 14:30 06/25/24 04:53 650 MG Morphine Sulfate 2 mg Q4HPRN PRN IV 06/24/24 14:30 06/24/24 20:14 2 MG Nitroglycerin 0.4 mg Q5MINP PRN SL 06/24/24 14:30 Morphine Sulfate 2 mg Q30M PRN IV 06/24/24 14:30 Cyclobenzaprine HCl 10 mg Q8HPRN PRN PO 06/24/24 14:45 Vancomycin HCl 250 ml @ 200 mls/hr Q8H IV 06/25/24 20:00 Laboratory Results Laboratory Tests 06/25/24 05:28 Chemistry Test 06/25/24 05:28 Albumin 3.9 g/dL (3.2-4.8) Calcium Level 8.9 mg/dL (8.7-10.4) Total Protein 6.5 g/dL (5.7-8.2) LFT Test 06/25/24 05:28 Alanine Aminotransferase (ALT) 12 U/L (7-40) Alkaline Phosphatase 84 U/L (46-116) Aspartate Amino Transferase (AST) 10 U/L (13-40) L Total Bilirubin 0.2 mg/dL (0.2-1.0) Urinalysis Test 06/24/24 12:46 Urine Color Light-yellow (Yellow) Urine Clarity Cloudy (Clear) H Urine pH 6.0 (5.0-9.0) Urine Specific [place] 1.005 (1.001-1.035) Urine Protein Negative (Negative) Urine Ketones 2+ (Negative) H Urine Blood Negative /uL (Negative) Urine Nitrite Negative (Negative) Urine Bilirubin Negative (Negative) Urine Urobilinogen Normal mg/dL (Negative) Urine Leukocyte Esterase 3+ /uL (Negative) Urine RBC 1 /hpf (0 - 4) Urine Microscopic WBC 22 /HPF (0-5) H Urine Squamous Epithelial Cells Mod /hpf (<5) Urine Bacteria Mod /hpf (None Seen) H Urine Glucose Normal mg/dL (Normal) Urine Test Negative (Negative) Microbiology Microbiology Date/Time Source Procedure Growth Status 06/24/24 12:46 Voided Urine Urine Culture - Preliminary Resulted 06/24/24 10:50 Blood Blood Culture - Preliminary NO GROWTH AFTER 24 HOURS OF INCUBATION. Resulted Assessment/Plan Assessment/Plan 38-year-old female with a known history of asthma initially presented to the hospital with right flank pain fevers chills and and dysuria found to have 1. Sepsis suspected secondary to acute pyelonephritis 2. Acute pyelonephritis right-sided 3. Mild right pelviectasis as well as right hydroureter 4. Leukocytosis 5. Chronic asthma 6. Chronic substance use -continue IV antibiotics, pain meds, follow up blood cultures, Follow up urine culture-discharge plan Plan discussed with: Patient, Other Date of Service: Jun 25, 2024 Billing Provider: DAVIS JC MD Common Visit Codes: [id number] INP/OBS CARE(MOD) DAVIS JC MD Jun 25, 2024 17:52
[2024-06-25] MEDS: VANCOMYCIN 1.25GM/250ML 250 ML IV SCH (21:51)
[2024-06-26 01:00] VITALS: BP 108/63; PULSE 89; RESP 18; TEMP 98.4; O2SAT 90
[2024-06-26 05:00] VITALS: BP 103/52; PULSE 100; RESP 18; TEMP 98.9; O2SAT 93
[2024-06-26 06:00] LABS: Basophils # (auto) 0 10 ^3/uL (0-0.2); Basophils % (auto) 0.4 % (0.0-2.0); Eosinophils # (auto) 0.2 10 ^3/uL (0-0.8); Eosinophils % (auto) 2.2 % (0.0-7.0); Hematocrit 33.8 % (36.0-46.0); Hemoglobin 11.2 g/dL (12.2-16.2); Lymphocytes # (auto) 1.8 10 ^3/uL (0.4-5.4); Lymphocytes % (auto) 15.7 % (10.0-50.0); Mean Corpuscular Hemoglobin 29.7 pg (28.0-32.0); Mean Corpuscular Hgb Conc. 33.1 g/dL (32.0-36.0); Mean Corpuscular Volume 89.9 fL (80.0-100.0); Monocytes # (auto) 0.9 10 ^3/uL (0-1.3); Monocytes % (auto) 7.7 % (0.0-12.0); Neutrophils # (auto) 8.4 10 ^3/uL (1.6-8.6); Platelet Count (auto) 436 10^3/uL (140-450); Red Blood Cells 3.76 10^6/uL (4.0-5.20); White Blood Cell 11.4 10^3/uL (4.4-10.8)
[2024-06-26 06:09] LABS: Anion Gap 8 (5-15); Carbon Dioxide 26 mmol/L (20-31); Chloride 102 mmol/L (98-107); Sodium 136 mmol/L (136-145)
[2024-06-26 06:10] LABS: Calcium 9.2 mg/dL (8.7-10.4)
[2024-06-26 06:15] LABS: BUN/Creatinine Ratio 8.1 (10.0-20.0); Blood Urea Nitrogen < 5 mg/dL (9-23); Glucose 92 mg/dL (74-106); Potassium 3.5 mmol/L (3.5-5.1)
[2024-06-26 08:00] VITALS: PULSE 86
[2024-06-26 09:00] VITALS: BP 113/66; PULSE 90; RESP 16; TEMP 98.7; O2SAT 94
[2024-06-26 13:00] VITALS: BP 117/66; PULSE 93; RESP 15; TEMP 97.9; O2SAT 97
[2024-06-26] MEDS ORDERED: DOXY100C79 PO (14:20)
[2024-06-26] MEDS ORDERED: CEFD300C2 PO (14:20)
--- NOTE | 2024-06-26 14:24 | DVHDS2 ---
Discharge Summary Date of Admission Jun 24, 2024 at 14:20 Date of Discharge: Jun 26, 2024 Labs/Diagnostic Data: Laboratory Results Test 06/26/24 05:23 06/25/24 11:28 06/25/24 05:28 06/24/24 12:46 White Blood Count 11.4 10^3/uL (4.4-10.8) Red Blood Count 3.76 10^6/uL (4.0-5.20) Hemoglobin 11.2 g/dL (12.2-16.2) Hematocrit 33.8 % (36.0-46.0) Mean Corpuscular Volume 89.9 fL (80.0-100.0) Mean Corpuscular Hemoglobin 29.7 pg (28.0-32.0) Mean Corpuscular Hemoglobin Concent 33.1 g/dL (32.0-36.0) Red Cell Distribution Width 13.0 % (11.8-14.3) Platelet Count 436 10^3/uL (140-450) Mean Platelet Volume 7.3 fL (6.9-10.8) Neutrophils (%) (Auto) 74.0 % (37.0-80.0) Lymphocytes (%) (Auto) 15.7 % (10.0-50.0) Monocytes (%) (Auto) 7.7 % (0.0-12.0) Eosinophils (%) (Auto) 2.2 % (0.0-7.0) Basophils (%) (Auto) 0.4 % (0.0-2.0) Neutrophils # (Auto) 8.4 10 ^3/uL (1.6-8.6) Lymphocytes # (Auto) 1.8 10 ^3/uL (0.4-5.4) Monocytes # (Auto) 0.9 10 ^3/uL (0-1.3) Eosinophils # (Auto) 0.2 10 ^3/uL (0-0.8) Basophils # (Auto) 0 10 ^3/uL (0-0.2) Nucleated Red Blood Cells 0.0 % Sodium Level 136 mmol/L (136-145) Potassium Level 3.5 mmol/L (3.5-5.1) Chloride Level 102 mmol/L (98-107) Carbon Dioxide Level 26 mmol/L (20-31) Anion Gap 8 (5-15) Blood Urea Nitrogen < 5 mg/dL (9-23) Creatinine 0.62 mg/dL (0.550-1.02) Glomerular Filtration Rate Calc 117 mL/min (>90) BUN/Creatinine Ratio 8.1 (10.0-20.0) Serum Glucose 92 mg/dL (74-106) Calcium Level 9.2 mg/dL (8.7-10.4) Vancomycin Level Trough 7.7 ug/mL (5-10) Total Bilirubin 0.2 mg/dL (0.2-1.0) Aspartate Amino Transferase (AST) 10 U/L (13-40) Alanine Aminotransferase (ALT) 12 U/L (7-40) Alkaline Phosphatase 84 U/L (46-116) Total Protein 6.5 g/dL (5.7-8.2) Albumin 3.9 g/dL (3.2-4.8) Urine Color Light-yellow (Yellow) Urine Clarity Cloudy (Clear) Urine pH 6.0 (5.0-9.0) Urine Specific [place] 1.005 (1.001-1.035) Urine Protein Negative (Negative) Urine Ketones 2+ (Negative) Urine Blood Negative /uL (Negative) Urine Nitrite Negative (Negative) Urine Bilirubin Negative (Negative) Urine Urobilinogen Normal mg/dL (Negative) Urine Leukocyte Esterase 3+ /uL (Negative) Urine RBC 1 /hpf (0 - 4) Urine Microscopic WBC 22 /HPF (0-5) Urine Squamous Epithelial Cells Mod /hpf (<5) Urine Bacteria Mod /hpf (None Seen) Urine Glucose Normal mg/dL (Normal) Urine Test Negative (Negative) Test 06/24/24 10:50 Lactic Acid Level 0.9 mmol/L (0.4-2.0) Other Laboratory Tests 06/26/24 05:23 Brief Hx & Hospital Course: 38-year-old female with a known history of asthma initially presented to the hospital with right flank pain fevers chills and and dysuria found to have sepsis secondary to acute pyelonephritis, patient has a mild right pelviectasis as well as right hydroureter without any obstruction. Patient was given IV antibiotics, urine culture shows contamination. We will cover with a both Gram- negative and Gram-positive antibiotics. Patient will be discharged with doxy as well as cefdinir. Please get an outpatient repeat kidney ultrasound to make sure there is no right hydroureter or any concern otherwise needs follow up with the PCP as well as Urology. Condition at Discharge: Stable Final Diagnosis/Problems List 38-year-old female with a known history of asthma initially presented to the hospital with right flank pain fevers chills and and dysuria found to have 1. Sepsis suspected secondary to acute pyelonephritis 2. Acute pyelonephritis right-sided 3. Mild right pelviectasis as well as right hydroureter 4. Leukocytosis 5. Chronic asthma 6. Chronic substance use Discharge Disposition: Home SNF Discharge Will this Physician continue t: No Discharge Instruct/Medications Diet: Cardiac 2g Na,low cholest Activity: No Restrictions, As Tolerated Follow Up/Referral: Follow up with the PCP in one week Also get outpatient Renal Ultrasound to make sure there was no right hydroureter or right pelviectasis Medications: Cefdinir and doxycycline as prescribed Discharge Statement: "Patient was advised to return to the ER or call 911 if any headaches, dizziness, shortness of breath, chest pain, abdominal pain, bleeding, fevers, or worsening of medical condition. Patient was counseled about treatment plan, medications, possible side effects, patientverbalized understanding. All questions were answered to the best of my ability. This discharge took greater then 30 minutes in planning, reviewing documentation, counseling the patient, and discussing with other team members." ASSESSMENT ASSESSMENT Assessment 38-year-old female with a known history of asthma initially presented to the hospital with right flank pain fevers chills and and dysuria found to have 1. Sepsis suspected secondary to acute pyelonephritis 2. Acute pyelonephritis right-sided 3. Mild right pelviectasis as well as right hydroureter 4. Leukocytosis 5. Chronic asthma 6. Chronic substance use Date of Service: Jun 26, 2024 Billing Provider: DAIVS JC MD Common Visit Codes: 62164-UAK/OBS DISCH DAY >30min DAVIS JC MD Jun 26, 2024 14:24
[2024-06-26 15:47] VITALS: BP 113/66; PULSE 90; RESP 16; TEMP 98.7; O2SAT 94
[2024-06-27 10:37] LABS: Hepatitis B Surface Antigen Negative (Negative); Hepatitis C Antibody Negative (Negative)
== END 2024-06-26 16:20 | disposition home or self-care (01) | DRG 720 ==
LOC: ER 10:11 → OVERFLOW 14:20 → TELE-EAST 06-25 02:52
DX: A41.9 Sepsis, unspecified organism (principal); N13.6 Pyonephrosis; E87.6 Hypokalemia; N28.89 Other specified disorders of kidney and ureter; J45.909 Unspecified asthma, uncomplicated; Z82.49 Family history of ischemic heart disease and other diseases of the circulatory system; Z83.3 Family history of diabetes mellitus; Z87.442 Personal history of urinary calculi; Z79.899 Other long term (current) drug therapy; F19.90 Other psychoactive substance use, unspecified, uncomplicated
CPT/HCPCS: 36415; 74176; 80048; 80053; 80202; 81001; 81025; 83605; 85025; 86803; 87040; 87086; 87340; 93005; 96361; 96374; G0378; J2405

== ENCOUNTER 2024-07-09 09:09 | Emergency (ER) | payer MEDICAID ==
[~2024-07-09] VITALS: Ht 157.5 cm; Wt 80.8 kg
[~2024-07-09 09:09] MED LIST: CEFD300C2 PO; CYCL-611 PO; DOXY100C79 PO
[2024-07-09 09:32] LABS: Lymphocytes # (auto) 1.7 10 ^3/uL (0.4-5.4); Monocytes # (auto) 0.3 10 ^3/uL (0-1.3); Red Cell Distribution Width 13.8 % (11.8-14.3)
[2024-07-09 09:35] VITALS: PULSE 96; RESP 18; O2SAT 100
[2024-07-09 09:35] LABS: Basophils # (auto) 0 10 ^3/uL (0-0.2); Basophils % (auto) 0.7 % (0.0-2.0); Eosinophils # (auto) 0 10 ^3/uL (0-0.8); Eosinophils % (auto) 0.8 % (0.0-7.0); Hematocrit 37.3 % (36.0-46.0); Hemoglobin 12.7 g/dL (12.2-16.2); Lymphocytes % (auto) 25.9 % (10.0-50.0); Mean Corpuscular Hemoglobin 30.3 pg (28.0-32.0); Mean Corpuscular Hgb Conc. 33.9 g/dL (32.0-36.0); Mean Corpuscular Volume 89.4 fL (80.0-100.0); Monocytes % (auto) 5.2 % (0.0-12.0); Neutrophils # (auto) 4.3 10 ^3/uL (1.6-8.6); Neutrophils % (auto) 67.4 % (37.0-80.0); Nucleated Red Blood Cells % 0.2 %; Platelet Count (auto) 571 10^3/uL (140-450); Red Blood Cells 4.18 10^6/uL (4.0-5.20); White Blood Cell 6.4 10^3/uL (4.4-10.8)
--- NOTE | 2024-07-09 09:36 | ED.PDOC ---
CORNICE MAKER HPI Comments 38 y/o MIS-1 F, with PMHx of asthma presents to the ED for CC of pelvic pain. Patient states, that she has been experiencing pelvic pain with associated nausea and vomiting x1day. Patient relays, recent with at home positive text x2 on Thursday (07/05/24); LMP 06/03/24. Patient comments, that she was admitted on 06/24/24 for intractable flank pain and was given antibiotics for a UTI. Patient complains of, current 12/30 pelvic pain and is unsure if symptoms are due to underlying UTI symptoms or new . Patient denies vaginal bleeding, vaginal cramping, vaginal discharge, or abdominal pain. No other associated symptoms, modifiers, recent injuries or sick contacts present at this time. Chief Complaint: Pelvic Pain Time Seen by MD: 09:30 Reviewed Notes: Nurses Notes, Medications, Allergies Allergies: Coded Allergies: NO KNOWN ALLERGIES (Unverified , 04/29/16) Home Meds Active Scripts Cephalexin (KEFLEX CAPSULE) 250 Mg Cp, 250 MG PO QID for 5 Days, #20 BOTTLE Prov:MARYANN TIRADO MD 07/09/24 Doxycycline (Monohydrate) (Doxycycline) 100 Mg Cap, 100 MG PO BID for 5 Days, #10 CAP Prov:DAVIS JC MD 06/26/24 Cefdinir (Cefdinir) 300 Mg Cap, 1 CAP PO BID for 5 Days, #10 CAP Prov:DAVIS JC MD 06/26/24 Reported Medications Cyclobenzaprine HCl (Cyclobenzaprine Hydrochlo) 10 Mg Tab, 1 TAB PO Q8HPRN PRN 06/24/24 Information Source: Patient Mode of Arrival: EMS Timing: Days Prehospital treatment: None Severity: None Vaginal Discharge: None Vaginal Lesions: None Vaginal Mass: None Onset Of Mass/Bleeding: Spontaneous Sexual Activity: Last Consensual [place]: Unknown Control: None Symptoms of Possible : None Associated Signs and Symptoms: Other (pelvic pain ) Past Medical History PAST MEDICAL HISTORY: Asthma 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 Family History Family History: Family hx of DM, Family hx of HTN, Family hx of Kidney mary anne, Family hx of liver mary anne Social History Smoker: Non-Smoker Alcohol: Occasionally Drugs: Marijuana Lives In: Home Constitutional: denies: chills, diaphoresis, fatigue, fever, malaise, sweats, weakness, others EENTM: denies: blurred vision, double vision, ear bleeding, ear discharge, ear drainage, ear pain, ear ringing, eye pain, eye redness, hearing loss, mouth pain, mouth swelling, nasal discharge, nose bleeding, nose congestion, nose pain, photophobia, tearing, throat pain, throat swelling, voice changes, others Respiratory: denies: cough, hemoptysis, orthopnea, SOB at rest, shortness of breath, SOB with excertion, stridor, wheezing, others Cardiovascular: denies: chest pain, dizzy spells, diaphoresis, Dyspnea on exertion, edema, irregular heart beat, left arm pain, lightheadedness, palpitations, PND, syncope, others Gastrointestinal: denies: abdomen distended, abdominal pain, blood streaked bowels, constipated, diarrhea, dysphagia, difficulty swallowing, hematemesis, melena, nausea, poor appetite, poor fluid intake, rectal bleeding, rectal pain, vomiting, others Genitourinary: reports: others (pelvic pain); denies: abnormal vagina bleeding, burning, dyspareunia, dysuria, flank pain, frequency, hematuria, incontinence, pain, , vagina discharge, urgency Neurological: denies: dizziness, fainting, headache, left sided numbness, left sided weakness, numbness, paresthesia, pre-existing deficit, right sided numbness, right sided weakness, seizure, speech problems, tingling, tremors, weakness, others Musculoskeletal: denies: back pain, gout, joint pain, joint swelling, muscle pain, muscle stiffness, neck pain, others Integumetry: denies: bruises, change in color, change in hair/nails, dryness, laceration, lesions, lumps, rash, wounds, others Allergic/Immunocompromised: denies: Difficulty Healing, Frequent Infections, Hives, Itching, others Hematologic/Lymphatic: denies: anemia, blood clots, easy bleeding, easy bruis ing, swollen glands, others Endocrine: denies: excessive hunger, excessive sweating, excessive thirst, exc essive urination, flushing, intolerance to cold, intolerance to heat, unexplained weight gain, unexplained weight loss, others Psychiatric: denies: anxiety, bipolar disorder, depression, hopeless, panic disorder, schizophrenia, sleepless, suicidal, others All Other Systems: Reviewed and Negative Physical Exam General Appearance: Moderate Distress HEENT: Normal ENT Inspection, Pharynx Normal, TMs Normal Neck: Full Range of Motion, Non-Tender, Normal, Normal Inspection Respiratory: Chest Non-Tender, Lungs Clear, No Accessory Muscle Use, No Respiratory Distress, Normal Breath Sounds Cardiovascular: No Edema, No JVD, No Murmur, No Gallop, Normal Peripheral Pulses, Regular Rate/Rhythm Breast Exam: Deferred Gastrointestinal: No Organomegaly, Non Tender, No Pulsatile Mass, Normal Bowel Sounds, Soft Genitalia: Deferred Pelvic: Deferred Rectal: Deferred Extremities: No calf tenderness, Normal capillary refill, Normal inspection, Normal range of motion, Non-tender, No pedal edema Musculoskeletal : Apperance: Normal Neurologic: Alert, professor of religion II-XII nml as Tested, No Motor Deficits, Normal Affect, Normal Mood, No Sensory Deficits Cerebellar Function: Normal Reflexes: Normal Skin: Dry, Normal Color, Warm Peripheral Pulses: 3+ Radial (R), 3+ Radial (L) Lymphatic: No Adenopathy Was a procedure done? Was a procedure done?: No Differential Diagnosis (VOCATIONAL EDUCATION TEACHER) Vaginal Bleeding: - Complete, - Incomplete, - Inevitable, - Missed, - Threatened, PID, UTI, Other X-Ray, Labs, Meds, VS Vital Signs Date Time Temp Pulse Resp B/P (MAP) Pulse Ox O2 Delivery O2 Flow Rate FiO2 07/09/24 09:35 98.2 96 18 129/70 (89) 100 98.2 07/09/24 09:35 96 18 100 Room Air* 0 21 07/09/24 09:15 98.3 91 18 137/97 (110) 98 98.3 Lab Test 07/09/24 09:20 07/09/24 09:15 Range/Units White Blood Count 6.4 4.4-10.8 10^3/uL Red Blood Count 4.18 4.0-5.20 10^6/uL Hemoglobin 12.7 12.2-16.2 g/dL Hematocrit 37.3 36.0-46.0 % Mean Corpuscular Volume 89.4 80.0-100.0 fL Mean Corpuscular Hemoglobin 30.3 28.0-32.0 pg Mean Corpuscular Hemoglobin Concent 33.9 32.0-36.0 g/dL Red Cell Distribution Width 13.8 11.8-14.3 % Platelet Count 571 H 140-450 10^3/uL Mean Platelet Volume 7.6 6.9-10.8 fL Neutrophils (%) (Auto) 67.4 37.0-80.0 % Lymphocytes (%) (Auto) 25.9 10.0-50.0 % Monocytes (%) (Auto) 5.2 0.0-12.0 % Eosinophils (%) (Auto) 0.8 0.0-7.0 % Basophils (%) (Auto) 0.7 0.0-2.0 % Neutrophils # (Auto) 4.3 1.6-8.6 10 ^3/uL Lymphocytes # (Auto) 1.7 0.4-5.4 10 ^3/uL Monocytes # (Auto) 0.3 0-1.3 10 ^3/uL Eosinophils # (Auto) 0 0-0.8 10 ^3/uL Basophils # (Auto) 0 0-0.2 10 ^3/uL Nucleated Red Blood Cells 0.2 % Beta HCG, Quantitative 80609.4 H 1.5-4.2 mIU/mL Urine Color Light-yellow Yellow Urine Clarity Clear Clear Urine pH 7.5 5.0-9.0 Urine Specific [place] 1.016 1.001-1.035 Urine Protein Negative Negative Urine Ketones Negative Negative Urine Blood Negative Negative /uL Urine Nitrite Negative Negative Urine Bilirubin Negative Negative Urine Urobilinogen Normal Negative mg/dL Urine Leukocyte Esterase 1+ Negative /uL Urine RBC 1 0 - 4 /hpf Urine Microscopic WBC 1 0-5 /HPF Urine Squamous Epithelial Cells Mod <5 /hpf Urine Bacteria Few H None Seen /hpf Urine Glucose Normal Normal mg/dL [facility] [id number] [place] [id number] Ph: [phone] DIAGNOSTIC IMAGING Diagnostic Imaging Report : [id number] Signed PATIENT: WENDI HERNANDEZ ACCT: [id number] UNIT: [id number] : 1985 LOC: ER ROOM / BED: / AGE / SEX: 38 / F ADM STATUS: REG ER SERVICE [id number] ORDERING PHYSICIAN: MARYANN TIRADO MD PROCEDURE(s): OB4US - OB ULTRASOUND COMP LESS 14WKS REASON: cramping ORDER NUMBER(s): [id number], ACCESSION NUMBER(s): [id number] STUDY: Transabdominal and Transvaginal Pelvic Ultrasound. Indication: cramping COMPARISON: None FINDINGS: The uterus measures 11.4 cm. There is a gestational sac that measures 1.1 cm. Yolk sac present. No definitive pole identified. Small amount of subchorionic hemorrhage present measuring 1.3 x 0.4 cm The right ovary measures 3.4 x 2.4 x 3.3 cm. Right ovarian cyst measuring 1.3 cm. The left ovary measures 2.1 x 2.3 x 1.0 cm . Bilateral ovarian Doppler flow is identified. No free fluid is seen within the pelvis. IMPRESSION: 1. Findings consistent with viable early intrauterine , dating to 5 weeks and 1 day. No pole identified. Recommend follow-up ultrasound with beta HCG correlation. 2. Subchorionic hemorrhage measuring 1.3 cm. ATED BY: MIGUEL ANGEL LAM MD DICTATED DATE/TIME: 07/09/241105 SIGNED BY: MIGUEL ANGEL LAM MD SIGNED DATE/TIME: 07/09/24 110 CC: Patient alert. Complaining of suprapubic discomfort. Vitals stable. Answering questions. Platelets elevated. WBC within normal limits. Hemoglobin within normal limits. Beta hCG appropriate elevated. Urinalysis shows UTI. Was given prescription of Keflex antibiotic. Ultrasound does reveal normal . She was told to follow up with OBGYN with serial blood work ultrasound. Reviewed her previous visit. Explained to the patient Was told to follow up with her primary care physician. Was told to come back if there is any problem. Time of 1ST Reevaluation: 10:00 Reevaluation 1ST: Unchanged Patient Education/Counseling: Diagnosis, Treatment Family Education/Counseling: No Family Present Departure 1 Departure Time of Disposition: 09:38 Impression: Primary Impression: UTI (urinary tract infection) Qualified Codes: N30.00 - Acute cystitis without hematuria Additional Impressions: Elevated platelet count Normal Qualified Codes: Z34.90 - Encounter for supervision of normal , unspecified, unspecified trimester Disposition: 01 HOME / SELF CARE / HOMELESS Condition: Good e-Prescriptions Cephalexin (KEFLEX CAPSULE) 250 Mg Cp 250 MG PO QID for 5 Days, #20 BOTTLE Prov: MARYANN TIRADO MD 07/09/24 Discharged With: Self Critical Care Note Critical Care Time?: No Stability Stability form required: No Heart Score Heart Score: Heart Score Response (Comments) Value History N/A 0 EKG N/A 0 Age N/A 0 Risk Factors N/A 0 Troponin N/A 0 Total 0 I personally scribed for MARYANN TIRADO MD ([email or web address]) on 07/09/24 at 09:36. Electronically submitted by Dionne Perez ([employer]). I personally scribed for MARYANN TIRADO MD ([email or web address]) on 07/09/24 at 09:43. Electronically submitted by Dionne Perez ([employer]). I personally scribed for MARYANN TIRADO MD ([email or web address]) on 07/09/24 at 13:06. Electronically submitted by Dionne Perez ([employer]). MARYANN TIRADO MD Jul 09, 2024 09:36
[2024-07-09 09:37] LABS: Urine Bacteria FEW /hpf (None Seen); Urine Blood Negative /uL (Negative); Urine Clarity Clear (Clear); Urine Color Light-Yellow (Yellow); Urine Protein, UAD Negative (Negative); Urine Specific Gravity 1.016 (1.001-1.035); Urine Squamous Epithelial Cell MOD /hpf (<5); Urine Urobilinogen Normal (Negative); Urine WBC 1 /HPF (0-5); Urine pH 7.5 (5.0-9.0)
--- NOTE | 2024-07-09 11:09 | DVH ---
STUDY: Transabdominal and Transvaginal Pelvic Ultrasound. Indication: cramping COMPARISON: None FINDINGS: The uterus measures 11.4 cm. There is a gestational sac that measures 1.1 cm. Yolk sac pre sent. No definitive pole identified. Small amount of subchorionic hemorrhage present measuring 1.3 x 0.4 cm The right ovary measures 3.4 x 2.4 x 3.3 cm. Right ovarian cyst measuring 1.3 cm. The left ovary measures 2.1 x 2.3 x 1.0 cm . Bilateral ovarian Doppler flow is identified. No free fluid is seen within the pelvis. IMPRESSION: 1. Findings consistent with viable early intrauterine , dating to 5 weeks and 1 day. No feta l pole identified. Recommend follow-up ultrasound with beta HCG correlation. 2. Subchorionic hemorrhage measuring 1.3 cm.
[2024-07-09] MEDS ORDERED: CEPH250C PO (12:20)
[2024-07-09 14:00] VITALS: BP 120/67; PULSE 82; RESP 14; TEMP 97.9; O2SAT 99
== END 2024-07-09 14:05 | disposition home or self-care (01) ==
LOC: ER 09:09
DX: O23.41 Unspecified infection of urinary tract in pregnancy, first trimester (principal); N39.0 Urinary tract infection, site not specified; D75.839 Thrombocytosis, unspecified; Z3A.01 Less than 8 weeks gestation of pregnancy; J45.909 Unspecified asthma, uncomplicated; R10.2 Pelvic and perineal pain; F12.90 Cannabis use, unspecified, uncomplicated; Z79.899 Other long term (current) drug therapy
CPT/HCPCS: 36415; 76801; 76817; 81001; 84702; 85025

== ENCOUNTER 2024-09-21 15:46 | Emergency (ER) | payer OTHER, BC, MEDICAID ==
[~2024-09-21] VITALS: Ht 157.5 cm; Wt 83.1 kg
[~2024-09-21 15:46] MED LIST changes: +CEPH250C PO
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
[2024-09-21 16:38] LABS: Urine Protein, UAD Negative (Negative)
--- NOTE | 2024-09-21 17:27 | DVH ---
EXAM: US OB ULTRASOUND COMP GTR 14 WKS CLINICAL HISTORY: pain COMPARISON: None TECHNIQUE: Grayscale, color-flow Doppler, and spectral Doppler ultrasound of the pelvis is performed by transabdominal technique. Findings: Single live intrauterine in breech presentation with heart rate of 156 bpm. Cervical os appears closed and measures 5.1 cm in length. Placenta is posterior in location without evidence o f previa or abruption. Bulging posterior to the placenta, nonspecific but may reflect a uterine contr action. Limited evaluation of anatomy. Estimated gestational age 16 weeks 3 days based on parameters which include biparietal diameter 3.4 cm, head circumference 12.8 cm, abdominal circumference 10.7 cm, and femur length 2.[address] ratios within normal limits. Estimated weight 155.3 g (0 lb 5 oz ). Impression: 1. Single live intrauterine in breech presentation with heart rate of 156 bpm. 2. Estimated gestational age 16 weeks 3 days with estimated date of confinement 03/05/2025.
[2024-09-21 18:30] VITALS: BP 122/64; PULSE 89; RESP 14; TEMP 97.8; O2SAT 99
== END 2024-09-21 18:35 | disposition home or self-care (01) ==
LOC: ER 15:46
DX: O20.0 Threatened abortion (principal); O99.512 Diseases of the respiratory system complicating pregnancy, second trimester; J45.909 Unspecified asthma, uncomplicated; O99.341 Other mental disorders complicating pregnancy, first trimester; F41.9 Anxiety disorder, unspecified; O99.321 Drug use complicating pregnancy, first trimester; F12.90 Cannabis use, unspecified, uncomplicated; Z79.899 Other long term (current) drug therapy
CPT/HCPCS: 76805; 81001

== ENCOUNTER 2024-11-14 10:47 | Observation (INO) | payer OTHER, BC, MEDICAID ==
--- NOTE | 2024-11-14 11:59 | DVHDS2 ---
Physician Discharge Progress N Final Diagnosis: dizziness ,hypoglycemia 24wks Operations or Procedures: Operations or Procedures nst Condition on Discharge: Good Disposition: Home Discharge Instructions: Diet: Regular Activity: No Restrictions, As Tolerated Medications: na Follow Up Care: Specialist: 2d Discharge Statement: "Patient was advised to return to the ER or call 911 if any headaches, dizziness, shortness of breath, chest pain, abdominal pain, bleeding, fevers, or worsening of medical condition. Patient was counseled about treatment plan, medications, possible side effects, patientverbalized understanding. All questions were answered to the best of my ability. This discharge took greater then 30 minutes in planning, reviewing documentatio n, counseling the patient, and discussing with other team members." Visit Coding OBGYN Date of Service: Nov 14, 2024 Billing Provider: BRAD MUSE DO SOAKER HELPER Common Visit Codes: [id number] OBS CARE (HIGH) SOAKER HELPER Procedure Codes: 56130-86- NON-STRESS TEST BRAD MUSE DO Nov 14, 2024 11:59
== END 2024-11-14 11:41 | disposition home or self-care (01) ==
LOC: LDRP 10:47
PROVIDERS: ADMIT Obstetrics & Gynecology; ATTEND Obstetrics & Gynecology
DX: O26.892 Other specified pregnancy related conditions, second trimester (principal); R42 Dizziness and giddiness; E16.2 Hypoglycemia, unspecified; Z3A.24 24 weeks gestation of pregnancy; Z98.890 Other specified postprocedural states; Z79.899 Other long term (current) drug therapy
CPT/HCPCS: 59025; 81002; 82948; G0378

== ENCOUNTER 2024-12-19 09:47 | Observation (INO) | payer OTHER, BC, MEDICAID ==
[2024-12-19] MEDS ORDERED: PREN1TAB71 OR (10:38)
[2024-12-19] MEDS ORDERED: NITR-87 PO (10:38)
== END 2024-12-19 10:52 | disposition home or self-care (01) ==
LOC: UNDOADMOB 09:47 → LDRP 09:47 → UNDODISOB 10:52
PROVIDERS: ADMIT Obstetrics & Gynecology; ATTEND Obstetrics & Gynecology
DX: O23.43 Unspecified infection of urinary tract in pregnancy, third trimester (principal); Z3A.29 29 weeks gestation of pregnancy; Z98.890 Other specified postprocedural states
CPT/HCPCS: 59025; 81002; 87086; G0378

== ENCOUNTER 2025-02-15 10:43 | Observation (INO) | payer OTHER, BC, MEDICAID ==
[~2025-02-15 10:43] MED LIST changes: +NITR-87 PO; +PREN1TAB71 OR
--- NOTE | 2025-02-15 12:13 | DVH ---
BIOPHYSICAL PROFILE HISTORY: Poly AMA TECHNIQUE: Multiple transabdominal real-time grayscale sonographic images through the gravid uterus of the fetus with duplex Doppler color flow and M-mode spectral analysis FINDINGS: BIOPHYSICAL PROFILE: breathing score: 2 of 2 movement score: 2 of 2 tone score: 2 of 2 Quantitative RICK score: 2 of 2 (RICK: 15.5 Cm.) Total score: 8 of 8 The cervix closed Single live fetus in cephalic presentation. heart rate 143 beats per minute. Fundal placenta without previa or abruption IMPRESSION: 1. Biophysical profile score: 8 of 8
--- NOTE | 2025-02-15 13:05 | DVHDS2 ---
Physician Discharge Progress N Final Diagnosis: ama,pylectasis 37wks Operations or Procedures: Operations or Procedures nst reactive reviwed,sono Condition on Discharge: Good Disposition: Home Discharge Instructions: Diet: Regular Activity: No Restrictions, As Tolerated Medications: na Follow Up Care: Specialist: 1w Discharge Statement: "Patient was advised to return to the ER or call 911 if any headaches, dizziness, shortness of breath, chest pain, abdominal pain, bleeding, fevers, or worsening of medical condition. Patient was counseled about treatment plan, medications, possible side effects, patientverbalized understanding. All questions were answered to the best of my ability. This discharge took greater then 30 minutes in planning, reviewing documentation, counseling the patient, and discussing with other team members." Visit Coding OBGYN Date of Service: Feb 15, 2025 Billing Provider: BRAD MUSE DO PRINTER FLOOR COVERING ASSISTANT Common Visit Codes: [id number] OBS CARE (HIGH) PRINTER FLOOR COVERING ASSISTANT Procedure Codes: 02662-41- NON-STRESS TEST BRAD MUSE DO Feb 15, 2025 13:05
== END 2025-02-15 13:12 | disposition home or self-care (01) ==
LOC: LDRP 10:43
PROVIDERS: ADMIT Obstetrics & Gynecology; ATTEND Obstetrics & Gynecology
DX: O42.913 Preterm premature rupture of membranes, unspecified as to length of time between rupture and onset of labor, third trimester (principal); Z3A.37 37 weeks gestation of pregnancy; Z98.890 Other specified postprocedural states
CPT/HCPCS: 76818; 81002; A4649; G0378; 59025; 76819

== ENCOUNTER 2025-02-21 05:00 | Observation (INO) | payer OTHER, BC, MEDICAID ==
--- NOTE | 2025-02-21 13:20 | DVH ---
CLINICAL HISTORY: Pyelectasis, advanced maternal age. COMPARISON: US BIOPHYSICAL PROFILE on DOS: 02/15/25, US OB ULTRASOUND COMP GTR 14 WKS on DOS: 09/21/24, US OB ULTRASOUND COMP LESS 14WKS on DOS: 07/09/24 TECHNIQUE: biophysical profile was performed. Transabdominal sonographic images of the fetus were obtained. FINDINGS: The fetus is in cephalic position. heart rate measures 141 BPM. Amniotic fluid index measures 10.8 cm. The placenta is fundal/posterior in position without visualized evidence for previa or abruption. Cervix is poorly visualized but appears grossly closed, and measures up to 3.5 cm in length. BPP profile is an overall score of 8/8, with 2/2 points for breathing, with at least one episode of breathing over a 30 second duration during a 30 minute observation, 2/2 points for movements, with 3 or more discrete body or limb movements, 2/2 points for tone, with one or more episodes of extremity extension with return to flexion, or opening and closing of hand, and 2/2 points for amniotic fluid, with at least 1 pocket of amniotic fluid that measures 2 cm in 2 perpendicular planes. IMPRESSION: BPP score of 8/8.
--- NOTE | 2025-02-21 14:17 | DVHDS2 ---
Physician Discharge Progress N Final Diagnosis: testing for pylectasis/AMA Operations or Procedures: Operations or Procedures 39yo IUP@38.2wks VSS NST reactive SVE /-3, per pt request FKC/PTL/PreE precautions reviewed. Dr. Moeller consulted, agrees with POC. Other Interventions Other Interventions [place] [id number] Ph: [phone] DIAGNOSTIC IMAGING Diagnostic Imaging Report : [id number] Signed PATIENT: WENDI HERNANDEZ ACCT: [id number] UNIT: [id number] : 1985 LOC: [facility] ROOM / BED: TRIAGE2 / A AGE / SEX: 39 / F ADM STATUS: ADM IN SERVICE 1210 ORDERING PHYSICIAN: SNOW BLACK CNM PROCEDURE(s): BPP - BIOPHYSICAL PROFILE REASON: Pyelectasis/AMA ORDER NUMBER(s): [id number], ACCESSION NUMBER(s): [id number] CLINICAL HISTORY: Pyelectasis, advanced maternal age. COMPARISON: US BIOPHYSICAL PROFILE on DOS: 02/15/25, US OB ULTRASOUND COMP GTR 14 WKS on DOS: 09/21/24, US OB ULTRASOUND COMP LESS 14WKS on DOS: 07/09/24 TECHNIQUE: biophysical profile was performed. Transabdominal sonographic images of the fetus were obtained. FINDINGS: The fetus is in cephalic position. heart rate measures 141 BPM. Amniotic fluid index measures 10.8 cm. The placenta is fundal/posterior in position without visualized evidence for previa or abruption. Cervix is poorly visualized but appears grossly closed, and measures up to 3.5 cm in length. BPP profile is an overall score of 8/8, with 2/2 points for b reathing, with at least one episode of breathing over a 30 second duration during a 30 minute observation, 2/2 points for movements, with 3 or more discrete body or limb movements, 2/2 points for tone, with one or more episodes of extremity extension with return to flexion, or opening and closing of hand, and 2/2 points for amniotic fluid, with at least 1 pocket of amniotic fluid that measures 2 cm in 2 perpendicular planes. IMPRESSION: BPP score of 8/8. ATED BY: MARY ANNE LANGFORD DO DICTATED DATE/TIME: 02/21/251316 SIGNED BY: MARY ANNE LANGFORD DO SIGNED DATE/TIME: 02/21/251316 CC: Condition on Discharge: Stable Disposition: Home Discharge Instructions: Diet: Regular Activity: Light activity Medications: see med list Follow Up Care: Specialist: f/u in 1wk Discharge Statement: "Patient was advised to return to the ER or call 911 if any headaches, dizziness, shortness of breath, chest pain, abdominal pain, bleeding, fevers, or worsening of medical condition. Patient was counseled about treatment plan, medications, possible side effects, patientverbalized understanding. All questions were answered to the best of my ability. This discharge took greater then 30 minutes in planning, reviewing documentat ion, counseling the patient, and discussing with other team members." Visit Coding OBGYN Date of Service: Feb 21, 2025 Billing Provider: SNOW BLACK CNM DERRICKMAN HELPER Common Visit Codes: [id number] OBS CARE (HIGH) DERRICKMAN HELPER Procedure Codes: 15265-43- NON-STRESS TEST SNOW BLACK CNM Feb 21, 2025 14:17
== END 2025-02-21 13:44 | disposition home or self-care (01) ==
LOC: UNDOADMOB 11:53 → LDRP 11:53 → UNDODISOB 13:44
PROVIDERS: ADMIT Obstetrics & Gynecology; ATTEND Obstetrics & Gynecology
DX: O09.523 Supervision of elderly multigravida, third trimester (principal); Z3A.38 38 weeks gestation of pregnancy; Z98.890 Other specified postprocedural states
CPT/HCPCS: 76818; 81002; 94760; A4649; G0378; 76819

== ENCOUNTER 2025-02-22 21:55 | Observation (INO) | payer OTHER, BC, MEDICAID ==
[~2025-02-22] VITALS: Ht 157.5 cm; Wt 90.3 kg
--- NOTE | 2025-02-22 23:16 | DVH ---
BIOPHYSICAL PROFILE HISTORY: DECREASED MOVEMENT. TECHNIQUE: Multiple transabdominal real-time grayscale sonographic images through the gravid uterus of the fetus with duplex Doppler color flow and M-mode spectral analysis FINDINGS: BIOPHYSICAL PROFILE: breathing score: 2 movement score: 2 tone score: 2 Quantitative RICK score: 2 (RICK: 14.9 cm, MVP: 6.1 cm ) Total score: 8/8 heart rate 146 beats per minute. Grade III fundal placenta without previa or abruption Single live fetus at 38 weeks 2 days Biophysical profile score 8/8 corresponding to an ALEXANDRE of 03/06/2025 IMPRESSION: 1. Biophysical profile score: 8/
--- NOTE | 2025-02-22 23:26 | DVHDS2 ---
Physician Discharge Progress N Final Diagnosis: DFM, resolved well being established Operations or Procedures: Operations or Procedures 39yo IUP@38+wks presents to OB triage with c/o DFM, denies UCs/LOF/VB/[place]/vision changes/RUQ pain. PNC with Dr. Moeller, gets testing weekly for AMA. VSS NST reactive FKC/PTL/PreE precautions reviewed. Other Interventions Other Interventions [place] [id number] Ph: [phone] DIAGNOSTIC IMAGING Diagnostic Imaging Report : [id number] Signed PATIENT: WENDI HERNANDEZ ACCT: [id number] UNIT: [id number] : 1985 LOC: [facility] ROOM / BED: TRIAGE1 / A AGE / SEX: 39 / F ADM STATUS: ADM IN SERVICE 03 ORDERING PHYSICIAN: SNOW BLACK CNM PROCEDURE(s): BPP - BIOPHYSICAL PROFILE REASON: DECREASED MOVEMENT. ORDER NUMBER(s): [id number], ACCESSION NUMBER(s): [id number] BIOPHYSICAL PROFILE HISTORY: DECREASED MOVEMENT. TECHNIQUE: Multiple transabdominal real-time grayscale sonographic images through the gravid uterus of the fetus with duplex Doppler color flow and M-mode spectral analysis FINDINGS: BIOPHYSICAL PROFILE: breathing score: 2 movement score: 2 tone score: 2 Quantitative RICK score: 2 (RICK: 14.9 cm, MVP: 6.1 cm ) Total score: 8/8 heart rate 146 beats per minute. Grade III fundal placenta without previa or abruption Single live fetus at 38 weeks 2 days Biophysical profile score 8/8 corresponding to an ALEXANDRE of 03/06/2025 IMPRESSION: 1. Biophysical profile score: 8/ ATED BY: LYLE SOTELO MD DICTATED DATE/TIME: 02/22/252312 SIGNED BY: LYLE SOTELO MD SIGNED DATE/TIME: 02/22/252312 CC: Condition on Discharge: Stable Disposition: Home Discharge Instructions: Diet: Regular Activity: No Restrictions, As Tolerated Medications: see med list Follow Up Care: Specialist: f/u in 1 wk Discharge Statement: "Patient was advised to return to the ER or call 911 if any headaches, dizziness, shortness of breath, chest pain, abdominal pain, bleeding, fevers, or worsening of medical condition. Patient was counseled about treatment plan, medications, possible side effects, patientverbalized understanding. All questions were answered to the best of my ability. This discharge took greater then 30 minutes in planning, reviewing documentation, counseling the patient, and discussing with other team members." Visit Coding OBGYN Date of Service: Feb 22, 2025 Billing Provider: SNOW BLACK CNM ONLINE EDITOR Common Visit Codes: 30412-QZNIAMS OBS CARE (HIGH) ONLINE EDITOR Procedure Codes: 50853-73- NON-STRESS TEST SNOW BLACK CNM Feb 22, 2025 23:26
== END 2025-02-22 23:29 | disposition home or self-care (01) ==
LOC: LDRP 21:55
PROVIDERS: ADMIT Obstetrics & Gynecology; ATTEND Obstetrics & Gynecology
DX: O36.8130 Decreased fetal movements, third trimester, not applicable or unspecified (principal); Z3A.38 38 weeks gestation of pregnancy; Z98.890 Other specified postprocedural states
CPT/HCPCS: 76818; 81002; 94760; A4649; G0378; 59025; 76819